=== PATIENT | male | born 1985 | race Caucasian/White ===

== ENCOUNTER 2025-09-27 14:50 | Emergency (ER) | payer OTHER ==
[~2025-09-27] VITALS: Ht 180.3 cm; Wt 85.9 kg
[2025-09-27 14:55] VITALS: PULSE 149; O2SAT 94
[2025-09-27] MEDS ORDERED: SODIUM CHLORIDE 0.9% 1,000 ML IV ONE (15:15)
[2025-09-27 15:33] VITALS: BP 123/62; PULSE 149; RESP 22; TEMP 97.9; O2SAT 94
[2025-09-27] MEDS: SODIUM CHLORIDE 0.9% 1,000 ML IV ONE (15:41)
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
== END 2025-09-27 18:16 | disposition left against medical advice (07) ==
LOC: EDBD 14:50 → ER 14:50
DX: F10.129 Alcohol abuse with intoxication, unspecified (principal); K21.9 Gastro-esophageal reflux disease without esophagitis; Y90.8 Blood alcohol level of 240 mg/100 ml or more
CPT/HCPCS: 36415; 72040; 80320; 96360; 96361; 99284; J7030

== ENCOUNTER 2025-09-27 22:04 | Emergency (ER) | payer OTHER ==
[~2025-09-27] VITALS: Ht 177.8 cm; Wt 88.0 kg
[2025-09-27 22:15] VITALS: BP 118/72; PULSE 104; RESP 16; TEMP 98.1; O2SAT 98
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
--- NOTE | 2025-09-27 23:13 | DVH ---
CLINICAL INDICATION: fall, pain TECHNIQUE: XYXY R KNEE 2V XRAY Comparison: None FINDINGS/IMPRESSION: : There is no evidence of acute fracture or dislocation. Soft tissues are unremarkable.
--- NOTE | 2025-09-27 23:14 | DVH ---
HISTORY: fall, pain TECHNIQUE: Nonenhanced axial images through the facial bones with coronal and sagittal MPR. Radiation Dose Information: CT Dose: CTDI volume is 66.78 mGy. Dose-length product is 1661.44 mGy*cm COMPARISON: None FINDINGS: Mandible: Unremarkable Maxilla: Unremarkable Zygomatic arches: Unremarkable Nasal bone: Unremarkable Orbits: Unremarkable Sinuses: Clear Facial swelling: None IMPRESSION: No acute facial fractures. Radiation optimization: All CT scans at this facility use at least one of these dose optimization techniques: automated exposure control mA and/or kV adjustment per patient size (includes targeted exams where dose is matched to clinical indication) or iterative reconstruction.
== END 2025-09-27 23:37 | disposition home or self-care (01) ==
LOC: ER 22:04 → EDBD 22:04 → ER 23:37
DX: S00.83XA Contusion of other part of head, initial encounter (principal); S80.01XA Contusion of right knee, initial encounter; F10.10 Alcohol abuse, uncomplicated; V43.52XA Car driver injured in collision with other type car in traffic accident, initial encounter; Y93.89 Activity, other specified; Y92.410 Unspecified street and highway as the place of occurrence of the external cause; Y99.8 Other external cause status; Y90.8 Blood alcohol level of 240 mg/100 ml or more
CPT/HCPCS: 36415; 70486; 73560; 80320